=== PATIENT | female | born 1985 | race Caucasian/White ===

== ENCOUNTER 2019-12-19 10:48 | Emergency (ER) | payer SELFPAY ==
[2019-12-19] MEDS ORDERED: ONDANSETRON INJ 4 MG/2 ML VIAL IV ONE (11:06)
[2019-12-19] MEDS ORDERED: MORPHINE SULFATE INJ 10 MG/ML VIAL IV ONE (11:57)
--- NOTE | 2019-12-19 12:01 | ED.PDOC ---
History of Present Illness - General Chief Complaint: Abdominal Pain Stated Complaint: Abdominal discomfort Time Seen by Provider: 12/19/19 11:56 Additional Information: Ms. Galloway is a 34-year-old female who presents to the ED with chief complaint of abdominal pain. Patient indicates the pain began at 8:00 this morning and has been constant but is slightly improving. Pain is crampy with sharp exacerbations. The pain began in patient's upper abdomen but is now diffuse. Positive nausea and vomiting, negative diarrhea. Patient denies fever. Patient denies past surgical history of any abdominal procedures. Patient denies dysuria and indicates she is not . Patient rates the pain presently as 3/10. She has no other complaints at this time. Review of Systems - Review of Systems Constitutional: States: no symptoms reported. Denies: chills, fever EENTM: States: no symptoms reported Respiratory: States: no symptoms reported. Denies: cough, short of breath Cardiology: Denies: chest pain, palpitations Gastrointestinal/Abdominal: States: see HPI. Denies: constipation, diarrhea Genitourinary: States: see HPI. Denies: dysuria, frequency, hematuria Musculoskeletal: States: no symptoms reported. Denies: joint pain, muscle pain Skin: States: no symptoms reported. Denies: rash Neurological: States: no symptoms reported Endocrine: States: no symptoms reported Hematologic/Lymphatic: States: no symptoms reported All other Systems: Reviewed and Negative Past Medical History (General) - Patient Medical History Hx Stroke: No Hx Congestive Heart Failure: No Hx Diabetes: No Hx MRSA: No - Vaccination History Hx Influenza Vaccination: No Hx Pneumococcal Vaccination: No - Social History Hx Tobacco Use: Yes Hx Alcohol Use: Yes - Social use - Female History Patient is a Female of Child Bearing Age (10 -59 yrs old): Yes Patient : No Family Medical History - Family History Mother Living Status: Still Living Hx Family Hypertension: Yes Hx Family;Other: Thyroid issues Physical Exam - Physical Exam General Appearance: Alert, Comfortable, No apparent distress Eyes, Ears, Nose, Throat Exam: normal ENT inspection Neck: non-tender, supple, normal inspection Respiratory: chest non-tender, lungs clear, normal breath sounds, no respiratory distress, no accessory muscle use Cardiovascular/Chest: normal peripheral pulses, no edema, no gallop, no JVD, no murmur, tachycardia Peripheral Pulses: No deficit Gastrointestinal/Abdominal: normal bowel sounds, tenderness - mild to moderate, diffuse, negative guarding Back Exam: normal inspection, no CVA tenderness, no vertebral tenderness Extremity: normal range of motion, non-tender, normal inspection, no pedal edema Neurologic: finish painter II-XII nml as tested, no motor/sensory deficits, alert, normal mood/affect Skin Exam: normal color, warm/dry Progress - Progress Progress: 12/19/19 12:03 Differential diagnosis includes but is not limited to gastritis, biliary colic, colitis, abdominal cramping 12/19/19 Patient is feeling much better at this time. She indicates that her pain is only very mild and crampy and her nausea and vomiting has resolved. Patient's labs are unremarkable except for a mild leukocytosis which is nonspecific. Patient's CT abdomen and pelvis is nonacute and shows only incidental findings. I have discussed with patient that I believe her abdominal discomfort is from the viral illness and I will discharge with symptomatic medications and patient to rest and follow-up with her PCP. Vital signs stable, patient is NAD, believe patient is safe for discharge with follow-up outpatient. Return to ED instructions discussed with patient and patient voices understanding and willingness to comply. - Results/Orders Results/Orders: 12/19/19 11:57 Hold Metformin x 48Hrs [id number] 12/19/19 13:02 LACTIC ACID Stat Laboratory Results - last 24 hr 12/19/19 12/19/19 12/19/19 11:15 11:16 11:16 WBC 14.7 H RBC 4.41 Hgb 13.0 Hct 39.5 MCV 89.6 MCH 29.5 MCHC 32.9 L RDW 15.5 H Plt Count 415 H MPV 7.1 L Absolute Neuts (auto) 11.20 H Absolute Lymphs (auto) 2.10 Absolute Monos (auto) 0.90 H Absolute Eos (auto) 0.30 Absolute Basos (auto) 0.10 Neutrophils % 76.3 Lymphocytes % 14.5 L Monocytes % 6.4 Eosinophils % 1.8 Basophils % 1.0 Sodium 139 Potassium 3.6 Chloride 104 Carbon Dioxide 27 Anion Gap 11.6 L BUN 22 H Creatinine 0.51 L BUN/Creatinine Ratio 43.1 H Random Glucose 101 Serum Osmolality 281.0 Calcium 8.9 Lipase Serum HCG, Qual Urine Color Yellow Urine Appearance Clear Urine pH 6.0 Ur Specific [place] 1.015 Urine Protein Negative Urine Glucose (UA) Negative Urine Ketones Negative Urine Blood Negative Urine Nitrite Negative Urine Bilirubin Negative Urine Urobilinogen 0.2 Ur Leukocyte Esterase Negative Urine RBC 0-1 Urine WBC 1-3 Ur Epithelial Cells 5-10 Urine Bacteria Rare Urine Mucus Trace 12/19/19 12/19/19 11:16 11:30 WBC RBC Hgb Hct MCV MCH MCHC RDW Plt Count MPV Absolute Neuts (auto) Absolute Lymphs (auto) Absolute Monos (auto) Absolute Eos (auto) Absolute Basos (auto) Neutrophils % Lymphocytes % Monocytes % Eosinophils % Basophils % Sodium Potassium Chloride Carbon Dioxide Anion Gap BUN Creatinine BUN/Creatinine Ratio Random Glucose Serum Osmolality Calcium Lipase 40 Serum HCG, Qual Negative Urine Color Urine Appearance Urine pH Ur Specific [place] Urine Protein Urine Glucose (UA) Urine Ketones Urine Blood Urine Nitrite Urine Bilirubin Urine Urobilinogen Ur Leukocyte Esterase Urine RBC Urine WBC Ur Epithelial Cells Urine Bacteria Urine Mucus Study: CT abdomen and pelvis. Indication: ulcerative colitis Technique: Venous phase CT imaging of the abdomen and pelvis obtained after intravenous administration of contrast. This exam was performed according to our departmental dose-optimization program, which includes automated exposure control, adjustment of the mA and/or kV according to patient size and/or use of iterative reconstruction technique. Comparison: None Findings: Mild bilateral basilar atelectasis. Inferior heart, liver, gallbladder, pancreas, spleen, adrenal glands, kidneys, bladder, and right ovary unremarkable. 3.7 cm benign left ovarian follicular cyst. No additional follow-up required. Stomach, small bowel, colon, and appendix unremarkable. No free fluid. No free air. No presacral edema. No pathologically enlarged adenopathy. No acute osseous abnormality. Impression: No acute abdominal or pelvic process. Electronically signed by: Roman Cruz MD 12/19/2019 12:54 PM Departure - Departure Clinical Impression: Leukocytosis Abdominal pain Qualifiers: Abdominal location: generalized Qualified Code(s): R10.84 - Generalized abdominal pain Vomiting Qualifiers: Vomiting type: unspecified Vomiting Intractability: non-intractable Nausea presence: without nausea Qualified Code(s): R11.11 - Vomiting without nausea Time of Disposition: 13:41 Disposition: Discharge to Home or Self Care Condition: Good Departure Forms: ED Discharge - Pt. Copy, Patient Portal Self Enrollment Instructions: DI for Abdominal Pain-Adult Diet: bland diet Referrals: KRYSTA BHANDARI MD [Active Staff] - 1-5 Days Prescriptions: Dicyclomine HCl [Bentyl] 20 mg PO Q8HRS PRN #20 tab PRN Reason: Abdominal Cramping Promethazine Tab [Phenergan Tablet] 25 mg PO Q6H PRN #12 tab PRN Reason: Vomiting Home Medications: Ambulatory Orders Dicyclomine HCl [Bentyl] 20 mg PO Q8HRS PRN #20 tab 12/19/19 Promethazine Tab [Phenergan Tablet] 25 mg PO Q6H PRN #12 tab 12/19/19
[2019-12-19 12:37] VITALS: TEMP 98.1
--- NOTE | 2019-12-19 12:55 | CT ---
Study: CT abdomen and pelvis. Indication: ulcerative colitis Technique: Venous phase CT imaging of the abdomen and pelvis obtained after intravenous administration of contrast. This exam was performed according to our departmental dose-optimization program, which includes automated exposure control, adjustment of the mA and/or kV according to patient size and/or use of iterative reconstruction technique. Comparison: None Findings: Mild bilateral basilar atelectasis. Inferior heart, liver, gallbladder, pancreas, spleen, adrenal glands, kidneys, bladder, and right ovary unremarkable. 3.7 cm benign left ovarian follicular cyst. No additional follow-up required. Stomach, small bowel, colon, and appendix unremarkable. No free fluid. No free air. No presacral edema. No pathologically enlarged adenopathy. No acute osseous abnormality. Impression: No acute abdominal or pelvic process. Electronically signed by: Roman Cruz MD 12/19/2019 12:54 PM FORENSIC TOXICOLOGIST
[2019-12-19 13:37] VITALS: BP 110/68; O2SAT 100
== END 2019-12-19 13:55 | disposition home or self-care (01) ==
LOC: ER 10:48
DX: R10.84 Generalized abdominal pain (principal); R11.2 Nausea with vomiting, unspecified; D72.829 Elevated white blood cell count, unspecified; N83.202 Unspecified ovarian cyst, left side; Z87.891 Personal history of nicotine dependence
CPT/HCPCS: 36415; 74177; 80048; 81001; 83605; 83690; 84703; 85025; J2270; J2405

== ENCOUNTER 2020-05-15 15:56 | Emergency (ER) | payer SELFPAY ==
[2020-05-15 16:43] VITALS: BP 106/72; TEMP 97.8; O2SAT 99
--- NOTE | 2020-05-16 00:38 | ED.PDOC ---
History of Present Illness - General Chief Complaint: Abdominal Pain Stated Complaint: abdominal pain Time Seen by Provider: 05/15/20 15:59 Source: patient Exam Limitations: no limitations - History of Present Illness Initial Comments: The patient is a 35-year-old female presented emergency room secondary to lower abdominal pain progressive over the last 5 days. She has had some mild nausea. No fever. No sore throat. No runny nose. No cough. No diarrhea. The patient reports she took a urine test today and it was positive. She reports her last menstrual period was around the first part of March. She does have a known history of ovarian cysts. No vaginal bleeding. No vaginal discharge. No urinary symptoms. No history of appendicitis. no History of gallbladder problems. Timing/Duration: other - 5 days Severity: moderate Improving Factors: nothing Worsening Factors: movement Associated Symptoms: denies symptoms Allergies/Adverse Reactions: Allergies NO KNOWN ALLERGY Allergy (Verified 12/19/19 11:01) Home Medications: Ambulatory Orders Dicyclomine HCl [Bentyl] 20 mg PO Q8HRS PRN #20 tab 12/19/19 Promethazine Tab [Phenergan Tablet] 25 mg PO Q6H PRN #12 tab 12/19/19 Review of Systems - Review of Systems Constitutional: States: no symptoms reported EENTM: States: no symptoms reported Respiratory: States: no symptoms reported Cardiology: States: no symptoms reported Gastrointestinal/Abdominal: States: abdominal pain Genitourinary: States: no symptoms reported Musculoskeletal: States: no symptoms reported Skin: States: no symptoms reported Neurological: States: no symptoms reported Endocrine: States: no symptoms reported All other Systems: No Change from Baseline Past Medical History (General) - Patient Medical History Hx Stroke: No Hx Congestive Heart Failure: No Hx Diabetes: No Hx MRSA: No - Vaccination History Hx Influenza Vaccination: No Hx Pneumococcal Vaccination: No - Social History Hx Tobacco Use: No Hx Alcohol Use: Yes - Social use - Female History Patient is a Female of Child Bearing Age (10 -59 yrs old): Yes Hx Last Menstrual Period: 03/28/20 Patient : Yes Family Medical History - Family History Mother Living Status: Still Living Hx Family Hypertension: Yes Hx Family;Other: Thyroid issues Physical Exam - Physical Exam General Appearance: Alert, Anxious Eye Exam: bilateral normal Ears, Nose, Throat: hearing grossly normal, normal pharynx Neck: non-tender, supple Respiratory: lungs clear, normal breath sounds, no respiratory distress, no accessory muscle use Cardiovascular/Chest: normal peripheral pulses, regular rate, rhythm, no edema Peripheral Pulses: radial,right: 2+, radial,left: 2+ Gastrointestinal/Abdominal: soft, other - Patient does have lower abdominal pain to palpation. It is a little worse to the right it seems than the left. Rectal Exam: deferred Back Exam: no CVA tenderness, no vertebral tenderness Extremity: normal range of motion, non-tender, normal inspection, no pedal edema, normal capillary refill Neurologic: rn chronic II-XII nml as tested, alert, normal mood/affect, oriented x 3 Skin Exam: normal color Comments: Vital Signs - 24 hr 05/15/20 16:07 Temperature 97.8 F Pulse Rate [ 84 left brachial] Respiratory 20 Rate Blood Pressure 106/72 [left brachial] O2 Sat by Pulse 99 Oximetry Progress - Progress Progress: 05/16/20 00:42 The patient is a 35-year-old female presented emergency room with lower abdominal pain of about 5 days duration. The patient left before most of the results were obtained AGAINST MEDICAL ADVICE. The patient refused a pelvic exam. Final read of the pelvic ultrasound is still pending. In total, the patient has a large ovarian cyst that may be causing some of her discomfort. She needs to follow this up with her OB GEN. Additionally the patient may have a small placental bleed in the . By definition this is a threatened miscarriage. At this point in time the appears intact. Serum hCG level was 52,000 today. The estimated gestational age is 6 weeks and 1 day by ultrasound. Vital signs are stable when the patient left AGAINST MEDICAL ADVIC E. Additionally she does appear to have a small urinary tract infection. I am going to place the patient on Keflex for the urinary tract infection. We will contact the patient in the morning to recommend pelvic rest as well as the above measures. Again the final read on the ultrasound is still pending at this time. 05/16/20 00:46 lópez acevedo [id number] - Results/Orders Results/Orders: Official read of the pelvic ultrasound is still pending due to transmission difficulties with the phone company. My review of the ultrasound images does show an intrauterine . If I am interpreting the images right she also has a 5-1/2 cm cyst to the left ovary. There is a small amount of pelvic fluid. And there is possibly a small placental bleed. I do not believe that the appendix was identified. Laboratory Tests 05/15/20 05/15/20 05/15/20 17:00 17:09 17:09 WBC RBC Hgb Hct MCV MCH MCHC RDW Plt Count MPV Absolute Neuts (auto) Absolute Lymphs (auto) Absolute Monos (auto) Absolute Eos (auto) Absolute Basos (auto) Neutrophils % Lymphocytes % Monocytes % Eosinophils % Basophils % Sodium 137 Potassium 3.4 L Chloride 105 Carbon Dioxide 26 Anion Gap 9.4 L BUN 13 Creatinine 0.53 L BUN/Creatinine Ratio 24.5 H Random Glucose 64 L Serum Osmolality 272.0 L Lactic Acid 1.0 Calcium 8.2 L Total Bilirubin 0.7 AST 15 ALT 12 Alkaline Phosphatase 40 L Serum Total Protein 6.9 Albumin 4.2 Globulin 2.7 Albumin/Globulin Ratio 1.6 Amylase 48 Lipase 33 Beta HCG, Quant Urine Color Yellow Urine Appearance Turbid Urine pH 6.0 Ur Specific [place] >= 1.030 Urine Protein Negative Urine Glucose (UA) Negative Urine Ketones Trace Urine Blood Negative Urine Nitrite Negative Urine Bilirubin Negative Urine Urobilinogen 0.2 Ur Leukocyte Esterase Small H Urine RBC 0-1 Urine WBC 5-10 H Ur Epithelial Cells 10-20 Urine Bacteria Rare Urine Mucus Small 05/15/20 05/15/20 17:09 17:09 WBC 8.7 RBC 4.36 Hgb 13.5 Hct 40.2 MCV 92.4 MCH 30.9 MCHC 33.4 RDW 14.2 Plt Count 325 MPV 7.3 L Absolute Neuts (auto) 5.50 Absolute Lymphs (auto) 2.10 Absolute Monos (auto) 0.80 Absolute Eos (auto) 0.20 Absolute Basos (auto) 0.10 Neutrophils % 63.6 Lymphocytes % 23.6 Monocytes % 9.7 H Eosinophils % 2.0 Basophils % 1.1 Sodium Potassium Chloride Carbon Dioxide Anion Gap BUN Creatinine BUN/Creatinine Ratio Random Glucose Serum Osmolality Lactic Acid Calcium Total Bilirubin AST ALT Alkaline Phosphatase Serum Total Protein Albumin Globulin Albumin/Globulin Ratio Amylase Lipase Beta HCG, Quant 63815.0 H Urine Color Urine Appearance Urine pH Ur Specific [place] Urine Protein Urine Glucose (UA) Urine Ketones Urine Blood Urine Nitrite Urine Bilirubin Urine Urobilinogen Ur Leukocyte Esterase Urine RBC Urine WBC Ur Epithelial Cells Urine Bacteria Urine Mucus Departure - Departure Clinical Impression: Pelvic pain, Threatened miscarriage, Cystitis during in first trimester, antepartum Ovarian cyst Qualifiers: Laterality: left Qualified Code(s): N83.202 - Unspecified ovarian cyst, left side Disposition: Left Against Medical Advice Condition: Fair Departure Forms: ED Discharge - Pt. Copy, Patient Portal Self Enrollment Instructions: DI for Abdominal Pain -- Early Diet: regular diet Activity: other - Pelvic rest Home Medications: Ambulatory Orders Dicyclomine HCl [Bentyl] 20 mg PO Q8HRS PRN #20 tab 12/19/19 Promethazine Tab [Phenergan Tablet] 25 mg PO Q6H PRN #12 tab 12/19/19 Additional Instructions: The patient is a 35-year-old female presented emergency room with lower abdominal pain of about 5 days duration. The patient left before most of the results were obtained AGAINST MEDICAL ADVICE. The patient refused a pelvic exam. Final read of the pelvic ultrasound is still pending. In total, the patient has a large ovarian cyst that may be causing some of her discomfort. She needs to follow this up with her OB GEN. Additionally the patient may have a small placental bleed in the . By definition this is a threatened miscarriage. At this point in time the appears intact. Serum hCG [place] was 52,000 today. The estimated gestational age is 6 weeks and 1 day by ultrasound. Vital signs are stable when the patient left AGAINST MEDICAL ADVICE. Additionally she does appear to have a small urinary tract infection. I am going to place the patient on Keflex for the urinary tract infection. We will contact the patient in the morning to recommend pelvic rest as well as the above measures. Again the final read on the ultrasound is still pending at this time.
--- NOTE | 2020-05-16 04:32 | US ---
EXAM: US First Trimester , Transabdominal and Transvaginal CLINICAL HISTORY: The patient is 35 years old and is Female; abd pain, mostly right lower, suspected TECHNIQUE: Real-time transabdominal and transvaginal obstetrical ultrasound of the maternal pelvis and a first trimester with image documentation. Transvaginal imaging was used for better evaluation of the fetus and adnexa. COMPARISON: No relevant prior studies available. FINDINGS: GESTATION: A single intrauterine gestational sac and yolk sac are present. A pole with a crown-rump length of 0.4 cm correlating to 6 weeks 1 day is present. heart rate is 168 bpm. A small hypoechoic area adjacent to the gestational sac is present. PLACENTA/AMNIOTIC FLUID: Cannot be adequately evaluated due to the early gestational age. UTERUS/CERVIX: Unremarkable. No myometrial mass. OVARIES: A large simple left ovarian cyst is present. The right ovary is not seen. There is no evidence of torsion. FREE FLUID: Small amount of free fluid is present. IMPRESSION: 1. Single IUP at 6 weeks 1 day with heart rate of 168 bpm. 2. Findings suggest small subchorionic hemorrhage. Electronically signed by: Emily Olivo MD 05/16/2020 4:31 AM CDT
== END 2020-05-15 19:37 | disposition left against medical advice (07) ==
LOC: ER 15:56
DX: O20.0 Threatened abortion (principal); O23.11 Infections of bladder in pregnancy, first trimester; O34.81 Maternal care for other abnormalities of pelvic organs, first trimester; N83.202 Unspecified ovarian cyst, left side; Z53.29 Procedure and treatment not carried out because of patient's decision for other reasons